=== PATIENT | male | born 1950 | race Two or more races ===

== ENCOUNTER 2019-05-24 05:01 | Day surgery (SDC) | payer MEDICARE, BC ==
[~2019-05-24] VITALS: Ht 172.7 cm; Wt 76.2 kg
--- NOTE | 2019-05-24 05:40 | NUR ---
RN NOTES PATIENT CAME IN TO UNIT, AMBULATORY FOR RIGHT SHOULDER ARTHROSCOPY, STEM DISTAL CLAVICLE, ROTATOR CUFF REPAIR. INITIATE ADMISSION PROCESS, VITAL SIGNS TAKEN AND RECORDED FOLLOWS BP 110/68, HR 72, RR 16, SATING 100% ON ROOM AIR, BREATHING EVEN AND UNLABORED. BLOOD GLUCOSE IS 99MG/DL, LAST MEAL WAS 05/23/19 2200 NPO AFTER. ALL NEEDS ANTICIPATED, DENIES ANY PAIN OR DISCOMFORT, PATIENT STARTED A MILD KETO DIET 3 THREE WEEKS AGO. ORIENTED TO UNIT, CALL LIGHT WITHIN EASY REACH, SAFETY MEASURES IN PLACE, PERIPHERAL IV ACCESS ON HIS LEFT ANTECUBITAL G#20. ALL NEEDS ATTENDED. AWAITING FOR OR STAFF FOR HISTORY DEPARTMENT CHAIR SCHEDULE, CONSENT SIGNED. ALERT ORIENTED X4. ALLERGIC TO CODEINE AND LATEX. WILL CONTINUE TO MONITOR ACCORDINGLY.
[2019-05-24 05:45] VITALS: BP 110/68
[2019-05-24] MEDS ORDERED: METF-440 PO (06:27)
[2019-05-24] MEDS ORDERED: ANESTHESIA TRAY IN PYXIS 1 EA TRAY MC ONE (06:37)
[2019-05-24] MEDS ORDERED: EPINEPHRINE (1:1000) 1 MG/ML AMPUL ONE ×2 (06:40→08:27)
[2019-05-24] MEDS ORDERED: FENTANYL PF 100MCG/2ML AMPUL ONE (06:48)
[2019-05-24] MEDS ORDERED: SCOPOLAMINE HBR 1 EA PATCH.TD72 TD ONE (06:48)
[2019-05-24] MEDS ORDERED: MIDAZOLAM HCL 2 MG/2ML VIAL ONE (06:48)
--- NOTE | 2019-05-24 06:50 | NUR ---
RN NOTES PICKED UP AND TRANSPORTED TO OR BY OR STAFF. REPORT GIVEN TO HENRIQUE.
[2019-05-24 07:04] LABS: CALCIUM, SERUM 9.1 mg/dL (8.5-10.1); CREATININE 1.4 mg/dL (0.6-1.3); POTASSIUM 4.2 mmol/L (3.5-5.1)
[2019-05-24 07:10] LABS: ALBUMIN 3.5 g/dL (3.4-5.0); BASOPHILS # (AUTO) 0.1 /CMM (0.0-0.2); BASOPHILS % (AUTO) 0.6 % (0.0-2.0); BILIRUBIN,TOTAL 0.6 mg/dL (0.2-1.0); EOSINOPHILS % (AUTO) 8.1 % (0.0-6.0); HEMATOCRIT 40 % (39-51); HEMOGLOBIN 13.5 g/dL (13.5-17.5); LYMPHOCYTES # (AUTO) 2.5 /CMM (0.8-4.8); LYMPHOCYTES % (AUTO) 24.8 % (20.0-44.0); MEAN CORPUSCULAR HGB CONC 34 g/dl (31.0-36.0); MEAN CORPUSCULAR VOLUME 91 fL (80-96); MONOCYTES % (AUTO) 10.2 % (2.0-12.0); NEUTROPHILS # (AUTO) 5.6 /CMM (1.8-8.9); NEUTROPHILS % (AUTO) 56.3 % (43.0-81.0); PLATELET COUNT (AUTO) 248 /CMM (150-450); RED BLOOD CELL COUNT(AUTO) 4.41 MIL/uL (4.5-6.0)
--- NOTE | 2019-05-24 07:10 | NUR ---
RN NOTES NUCLEAR FUEL PROCESSING TECHNICIAN RN GAVE REPORT. PT NOT PRESENT IN THE ROOM AND NOW AT THE OR FOR SURGERY.
[2019-05-24] MEDS ORDERED: FLUMAZENIL 0.5 MG VIAL ONE (09:03)
[2019-05-24] MEDS ORDERED: ONDANSETRON HCL/PF 4 MG/2 ML VIAL ONE (09:22)
[2019-05-24] MEDS ORDERED: HYDROMORPHONE 1 MG/1 ML DISP.SYRIN ONE (09:23)
[2019-05-24 10:00] VITALS: BP 104/69
--- NOTE | 2019-05-24 10:22 | NUR ---
RN NOTES PT CAME BACK FROM PACU. PT A/O X4. RA SATING AT 88-89%, PLACED ON OXYGEN AT 2LPM, TOLERATING WITH NO ACUTE RESPIRATORY DISTRESS. RIGHT ARM SLING PRESENT. PT DENIES PAIN AT THE MOMENT, STATING STILL FEELS NUMB TO RIGHT HAND/ARM. PT WANTS TO BE ADDRESSED "DOCTOR." PIV TO LAC G20, INTACT AND OPERATION. PT KEPT COMFORTABLE. PT'S BED IN LOWEST, LOCKED POSITION WITH SRX3. WILL CONTINUE PLAN OF CARE.
[2019-05-24] MEDS ORDERED: ONDANSETRON HCL/PF 4 MG/2 ML VIAL IV PRN (11:00)
--- NOTE | 2019-05-24 11:57 | NUR ---
RN NOTES PER PT (DR VELASCO) HIMSELF STATED HE HAD PERCOCET BEFORE AT HOME WHEN HE HAD KNEE SURGERY. REACTION IS NAUSEA THAT'S WHY HE ASKED JOE FIRST EARLIER TOO. PT AWARE OF HIS REACTIONS AND WANT PAIN PRN MEDICINE-PERCOCET ORDERED. WILL CONTINUE TO MONITOR.
[2019-05-24] MEDS ORDERED: oxyCODONE/APAP (5/325 MG) 1 UDTAB TABLET PO PRN (12:00)
--- NOTE | 2019-05-24 15:30 | NUR ---
MS PEST CONTROL WORKER NOTES PT TO GO HOME, ACCOMPANIED BY DAUGHTER. PT TOLERATING RA, WITH NO ACUTE RESPIRATORY DISTRESS. RIGHT ARM SLING PRESENT. PT STATED 2-3 OUT OF 10 PAIN AT THE TIME OF DISCHARGE, ADDED ITS TOLERABLE AND NO NEED FOR ANOTHER PAIN MEDICINE. PIV TO LAC G20, REMOVED AND APPLIED DRY DRESSING. NO PICTURE TAKEN AND FILED OF RIGHT SHOULDER SURGERY SITE THAT WAS DONE TODAY. DISCHARGE INSTRUCTIONS AND INVENTORY LIST, REVIEWED AND SIGNED BY PATIENT. VITAL SIGNS STABLE AND RECORDED. PT ESCORTED TO THE LOBBY BY [facility] VIA WHEELCHAIR. PT LEFT THE UNIT AT 1525. HOSPITALIST/MOBILE HOMES REPAIRER/AP AND SURGEON DR REYES AWARE OF PT'S DISCHARGE. CN/LUZ AWARE OF DISCHARGE WELL.
== END 2019-05-24 16:00 | disposition home or self-care (01) ==
LOC: DS 05:01 → UNDOADMIN 05:02 → MED 05:02 → UNDODISIN 15:30 → DS 16:00
PROVIDERS: ATTEND Specialist
DX: M75.41 Impingement syndrome of right shoulder (principal); I10 Essential (primary) hypertension; E11.9 Type 2 diabetes mellitus without complications
CPT/HCPCS: 29824; 29826; 36415; 80053; 82962; 85025; 85610; 85730; 86850; 93005; A4217; A4565; C1713; J0171 ×2; J0690; J1100; J1170; J2250; J2370; J2405 ×2; J2704; J3010; J3490 ×2; 88304-TC; 88311-TC; G0378